=== PATIENT | male | born 1960 | race Caucasian/White ===

== ENCOUNTER 2017-02-04 13:36 | Inpatient (IN) | payer OTHER ==
[~2017-02-04] VITALS: Ht 170.2 cm; Wt 100.8 kg
[~2017-02-04 13:36] MED LIST: ALD50 PO; AMO500 PO; CLARITHROMYCIN500 M1 PO; IND20 PO; L40 PO; LAC30L PO; PRILOSEC20 MG PO
[2017-02-04 15:18] LABS: UA SPECIFIC GRAVITY >=1.030 (1.005-1.035); microscopic required? YES; urine erythrocyte 3+ (NEGATIVE)
[2017-02-04 15:21] LABS: CALCIUM 7.9 mg/dL (8.5-10.1); CARBON DIOXIDE 24.3 mmol/L (21-32); CREATININE SERUM 1.8 mg/dL (0.7-1.3); POTASSIUM SERUM 5.2 mmol/L (3.5-5.1)
[2017-02-04 15:24] LABS: PLATELET COUNT 90 x10^3mcL (130-400); RED CELL DISTRIBUTION WIDTH 16.4 % (11.5-14.5)
[2017-02-04 15:27] LABS: BILIRUBIN TOTAL 8.5 mg/dL (0.20-1.00); MAGNESIUM 1.6 mg/dL (1.8-2.4); TOTAL PROTEIN, SERUM 6.5 g/dL (6.4-8.2)
[2017-02-04 15:31] LABS: ALBUMIN 1.4 g/dL (3.4-5.0)
[2017-02-04 15:44] LABS: BAND NEUTROPHIL 24 % (0-10); BASOPHIL 0 % (0-2); METAMYELOCTE 3 % (0-2); MONOCYTE 4 % (0-7); SEGMENTED NEUTROPHILS 64 % (37-75)
[2017-02-04 15:45] LABS: PLATELET MORPHOLOGY PLATELETS DECREASED
[2017-02-04 16:51] LABS: AMPHETAMINE QUAL UR NONE DETECTED (NEG <=1000)
[2017-02-04 17:34] VITALS: BP 101/57
[2017-02-04 17:44] VITALS: Ht 170.2 cm; Wt 100.8 kg
[2017-02-04 17:50] LABS: FREE T4 1.41 ng/dL (0.76-1.46); FREE THYROXINE INDEX 1.8 ug/dL (1.4-4.5); T4(THYROXINE) 4.7 ug/dL (4.7-13.3)
[2017-02-04 18:04] LABS: T3 TOTAL 0.4 ng/mL
[2017-02-04 19:44] LABS: CHOLESTEROL/HDL RATIO 2.7
[2017-02-04 21:28] VITALS: BP 71/40
[2017-02-04 22:46] VITALS: BP 107/63
[2017-02-05] VITALS (7 sets, daily range): BP systolic 91–139; BP diastolic 53–78
[2017-02-05 07:13] LABS: BASOPHIL % 0.2 % (0-2)
[2017-02-05 07:31] LABS: CALCIUM 7.3 mg/dL (8.5-10.1); CARBON DIOXIDE 22.1 mmol/L (21-32); CREATININE SERUM 1.8 mg/dL (0.7-1.3); MAGNESIUM 1.9 mg/dL (1.8-2.4); PHOSPHOROUS 4.4 mg/dL (2.5-4.9); POTASSIUM SERUM 4.8 mmol/L (3.5-5.1)
[2017-02-05 07:48] LABS: PLATELET COUNT 56 x10^3mcL (130-400); RED CELL DISTRIBUTION WIDTH 16.4 % (11.5-14.5)
[2017-02-05 11:10] LABS: IRON 93 ug/dL (65-170)
[2017-02-05 11:13] LABS: TOTAL IRON BINDING CAPACITY 80 ug/dL (250-450)
[2017-02-05 12:06] LABS: RED BLOOD CELLS 2.67 M/mm3 (4.52-5.90)
[2017-02-06 06:26] LABS: CALCIUM 7.3 mg/dL (8.5-10.1); CARBON DIOXIDE 24.2 mmol/L (21-32); CREATININE SERUM 1.9 mg/dL (0.7-1.3); MAGNESIUM 1.9 mg/dL (1.8-2.4); PHOSPHOROUS 3.9 mg/dL (2.5-4.9); POTASSIUM SERUM 4.1 mmol/L (3.5-5.1)
[2017-02-06 06:49] LABS: BASOPHIL % 0.1 % (0-2)
[2017-02-06 06:50] LABS: RED CELL DISTRIBUTION WIDTH 16.2 % (11.5-14.5)
[2017-02-06 06:51] LABS: PLATELET COUNT 55 x10^3mcL (130-400)
[2017-02-06 07:02] VITALS: BP 108/58
[2017-02-06 10:14] VITALS: BP 123/71
[2017-02-06 14:38] VITALS: BP 126/74
[2017-02-06 17:48] VITALS: BP 121/64
[2017-02-06 20:56] LABS: SITE FLUID LEFT; SOURCE FLUID PARACENTESIS
[2017-02-06 22:36] VITALS: BP 118/69
[2017-02-07 05:47] VITALS: BP 112/65
[2017-02-07 07:06] LABS: BASOPHIL % 0 % (0-2); PLATELET COUNT 60 x10^3mcL (130-400); RED CELL DISTRIBUTION WIDTH 15.6 % (11.5-14.5)
[2017-02-07 07:18] LABS: CALCIUM 7.1 mg/dL (8.5-10.1); CREATININE SERUM 1.6 mg/dL (0.7-1.3)
[2017-02-07 10:29] VITALS: BP 112/65
[2017-02-07 15:04] VITALS: BP 134/72
[2017-02-07 16:58] LABS: APPEARANCE FLUID HAZY; COLOR FLUID YELLOW; LYMPHOCYTE FLUID 20 %; MONOCYTE FLUID 4 %; RBC FLUID 3325 /cumm; SITE FLUID LEFT; SOURCE FLUID PARACENTESIS; WBC FLUID 1325 /cumm
[2017-02-07 18:27] VITALS: BP 110/68
[2017-02-07 22:35] VITALS: BP 123/74
[2017-02-08 06:36] VITALS: BP 101/71
[2017-02-08 07:22] LABS: BILIRUBIN TOTAL 7.5 mg/dL (0.20-1.00); CALCIUM 7.7 mg/dL (8.5-10.1); CARBON DIOXIDE 22.3 mmol/L (21-32); CREATININE SERUM 1.7 mg/dL (0.7-1.3); MAGNESIUM 1.7 mg/dL (1.8-2.4); PHOSPHOROUS 4.1 mg/dL (2.5-4.9); POTASSIUM SERUM 4.1 mmol/L (3.5-5.1)
[2017-02-08 07:23] LABS: ALBUMIN 1.3 g/dL (3.4-5.0)
[2017-02-08 07:29] LABS: BASOPHIL % 0.1 % (0-2)
[2017-02-08 07:31] LABS: PLATELET COUNT 69 x10^3mcL (130-400); RED CELL DISTRIBUTION WIDTH 15.7 % (11.5-14.5)
[2017-02-08 08:56] VITALS: BP 135/71
[2017-02-08 12:46] VITALS: BP 130/72
[2017-02-08] MEDS ORDERED: MECLIZINE HCL12.5 MG PO (12:59)
[2017-02-08] MEDS ORDERED: L20 PO (12:59)
[2017-02-08] MEDS ORDERED: ALD50 PO (12:59)
[2017-02-08] MEDS ORDERED: LAC PO (13:06)
[2017-02-08] MEDS ORDERED: AUG500 PO (13:06)
[2017-02-08 13:37] VITALS: BP 130/72
== END 2017-02-08 14:47 | disposition home or self-care (01) | DRG 720 ==
LOC: ED 13:36 → DU 16:29
PROVIDERS: Emergency Medicine; Family Medicine; ADMIT Family Medicine
DX: A41.9 Sepsis, unspecified organism (principal); N17.0 Acute kidney failure with tubular necrosis; E43 Unspecified severe protein-calorie malnutrition; R65.21 Severe sepsis with septic shock; K65.2 Spontaneous bacterial peritonitis; K70.31 Alcoholic cirrhosis of liver with ascites; K72.90 Hepatic failure, unspecified without coma; N18.3 Chronic kidney disease, stage 3 (moderate); N39.0 Urinary tract infection, site not specified; E87.1 Hypo-osmolality and hyponatremia; E87.5 Hyperkalemia; D53.9 Nutritional anemia, unspecified; E86.0 Dehydration; N50.89 Other specified disorders of the male genital organs
CPT/HCPCS: 80307; 83880; 84439; G0480; J0696; J1940; J2270; J2543; J3475; J3490; J7030; P9047; Q0092

== ENCOUNTER 2017-02-17 12:32 | Observation (INO) | payer OTHER ==
[~2017-02-17] VITALS: Ht 170.2 cm; Wt 105.7 kg
[~2017-02-17 12:32] MED LIST changes: +AUG500 PO; +L20 PO; +LAC PO; +MECLIZINE HCL12.5 MG PO
--- NOTE | 2017-02-17 13:48 | NUR ---
PT AMBULATORY TO ED 4
--- NOTE | 2017-02-17 14:29 | NUR ---
PT IN ED FOR PARACENTESIS, LAST HAD 7 DAYS AGO IN THE ED, PT REPORTS GENERALIZED ABD PAIN WITH NAUSEA, ABD IS FIRM AND DISTENDED, SKIN AND EYES JAUNDICE, PT IS AWAKE AND ALERT, NO ACUTE DISTRESS, ON CUTTER INSPECTOR, AWAITING MSE
--- NOTE | 2017-02-17 15:09 | NUR ---
DR. COBIAN AT BEDSIDE TO PLACE PARACENTESIS CATHETER WITH ULTRASOUND, ERT ASSISTING, PT SIGNED CONSENT FOR THE PROCEDURE
[2017-02-17 15:20] LABS: BILIRUBIN TOTAL 10.9 mg/dL (0.20-1.00); CALCIUM 8.7 mg/dL (8.5-10.1); CARBON DIOXIDE 21.5 mmol/L (21-32); CREATININE SERUM 2.8 mg/dL (0.7-1.3); TOTAL PROTEIN, SERUM 6.7 g/dL (6.4-8.2)
[2017-02-17 15:21] LABS: ALBUMIN 1.4 g/dL (3.4-5.0)
[2017-02-17 15:24] LABS: POTASSIUM SERUM 6.8 mmol/L (3.5-5.1)
[2017-02-17 15:28] LABS: PLATELET COUNT 97 x10^3mcL (130-400); RED CELL DISTRIBUTION WIDTH 16.8 % (11.5-14.5)
[2017-02-17 16:11] LABS: BAND NEUTROPHIL 8 % (0-10); BASOPHIL 0 % (0-2); MONOCYTE 6 % (0-7); SEGMENTED NEUTROPHILS 85 % (37-75)
[2017-02-17 16:12] LABS: PLATELET MORPHOLOGY PLATELETS DECREASED; rbc morphology (normal/abnorm) ABNORMAL (NORMAL)
--- NOTE | 2017-02-17 16:15 | NUR ---
WAITING FOR BLOOD CULTURES TO INITIATE ABX
--- NOTE | 2017-02-17 16:27 | NUR ---
LAB AT BEDSIDE FOR BLOOD CULTURES
--- NOTE | 2017-02-17 17:09 | NUR ---
2 MORE ABX TO INITIATE IN THE ED PRIOR TO TRANSFER TO FLOOR, PT IN NO ACUTE DISTRESS
[2017-02-17 17:16] LABS: T3 TOTAL 0.59 ng/mL
[2017-02-17 17:18] LABS: FREE T4 1.5 ng/dL (0.76-1.46); FREE THYROXINE INDEX 1.6 ug/dL (1.4-4.5); T4(THYROXINE) 4.2 ug/dL (4.7-13.3)
--- NOTE | 2017-02-17 17:45 | NUR ---
PAGE OUT TO DR. LANTIGUA TO NOTIFY OF LACTIC ACID, DR. COBIAN OUT OF ED AND PT ADMITTED
--- NOTE | 2017-02-17 17:47 | NUR ---
SPOKE WITH DR. LANTIGUA AND NOTIFIED HIM OF ELEVATED LACTIC ACID 4.4, NOTIFIED HIM THAT PT RECEIVED 1 L NS IN THE ED
--- NOTE | 2017-02-17 17:50 | NUR ---
VIVEK RUNNING, PT IN NO ACUTE DISTRESS
--- NOTE | 2017-02-17 18:00 | NUR ---
DR. JOHN IN ED TO ASSESS PT, PT HYPOTENSIVE, , PT TO RECEIVE 2 MORE LITERS NS, 2ND LITER HUNG AT THIS TIME, LUNGS CTA, BREATHING IS EVEN AND UNLABORED
[2017-02-17 18:01] LABS: CHOLESTEROL/HDL RATIO 1.5
--- NOTE | 2017-02-17 18:17 | NUR ---
NO URINE COLLECTION IN ED, PT REPORTS MINIMAL URINE OUTPUT NORMALLY
--- NOTE | 2017-02-17 18:26 | NUR ---
REPORT TO ABRAM GERARDO TO ASSUME CARE, PT TO BE TYRANSFERRED TO ROOM 251A
--- NOTE | 2017-02-17 18:32 | NUR ---
RECEIVED PT FROM ED VIA [employer]. CAME IN DUE TO ABDOMINAL PAIN. AAOX4. DENIES HEADACHE/DIZZINESS. NO SOB NOTED, LUNG SOUNDS DIMINISHED ON THE BASES. DENIES CHEST PAIN/PRESSURE, HR AT 107, SINUS TACHYCARDIA ON THE MONITOR. C/O 8/10 ABDOMINAL PAIN. ABDOMEN IS DISTENDED AND FIRM. JAUNDICE NOTED. W/ PITTING EDEMA ON BLE. SIDE RAILS UPX2. CALL LIGHT ON REACH. PRIMARY NURSE VARSHA AT BEDSIDE
--- NOTE | 2017-02-17 18:40 | NUR ---
PT RESTING IN BED. NO ACUTE DISTRESS. C/O 8 ABD PAIN BUT TOLERABLE. REDNESS NOTED TO R SIDE ABD, MANDY. BAND AID TO LEFT SIDE ABD C/D/I. ABD DISTENDED, FIRM. PT WITH JAUNDICED SKIN. IV TO RAC WITH 2ND BAG OF IV BOLUS RUNNING PER AUDIT REVIEWER. BED IN LOWEST POSITION, CALL LIGHT WITHIN REACH. PT ORIENTED TO ROOM AND SURROUNDINGS. WILL CONTINUE TO MONITOR.
[2017-02-17 18:45] VITALS: BP 115/57
--- NOTE | 2017-02-17 19:36 | NUR ---
RECEIVED PT FROM PREVIOUS SHIFT NURSE. PT AOX4. TELE#11, ST, HR109. DENIES CP/PRESSURE. PULSES STRONG, BLE, RIGHT LEG IS 4+, LEFT LEG IS 3+. PT IS JAUNDICED. LUNG SOUNDS DIMINISHED ON RA. DENIES SOB. BOWEL SOUNDS HYPOACTIVE, ABD IS DISTENDED AND FIRM. MILD GENERALIZED WEAKNESS, PT IS AMBULATORY. R ABD REDNESS NOTED AND L ABD HAS BAND AID IN PLACE. IV IN RAC, INTACT AND PATENT. BED IN LOWEST POSITION. CALL LIGHT WITHIN REACH. WILL CONTINUE TO MONITOR.
--- NOTE | 2017-02-17 20:35 | NUR ---
LACTIC ACID 6.3. DR. GARCIA AWARE. NO FURTHER ORDERS AT THIS TIME.
--- NOTE | 2017-02-17 20:38 | NUR ---
VITALS AFTER SECOND BOLUS - BP 110/56 MAP 74, HR 108, O2 100, RR 18, T 98.4.
--- NOTE | 2017-02-17 21:30 | NUR ---
VITALS AFTER LAST BOLUS BP 106/53 MAP 68, HR 110, O2 98, T 98.5
[2017-02-17 22:19] VITALS: BP 106/53
[2017-02-17 22:48] LABS: UA SPECIFIC GRAVITY 1.025 (1.005-1.035); microscopic required? YES; urine erythrocyte 2+ (NEGATIVE)
[2017-02-17 22:51] LABS: AMPHETAMINE QUAL UR NONE DETECTED (NEG <=1000)
[2017-02-18] VITALS (7 sets, daily range): BP systolic 88–104; BP diastolic 48–63
--- NOTE | 2017-02-18 02:10 | NUR ---
PT RESTING IN BED. RR EVEN AND UNLABORED. NO ACUTE DISTRESS NOTED. IV INTACT AND PATENT. CALL LIGHT WITHIN REACH. BED IN LOWEST POSITION, CALL LIGHT WITHIN REACH. WILL CONTINUE TO MONITOR.
[2017-02-18 06:45] LABS: CALCIUM 8.1 mg/dL (8.5-10.1); CREATININE SERUM 2.8 mg/dL (0.7-1.3); MAGNESIUM 1.8 mg/dL (1.8-2.4); PHOSPHOROUS 5.8 mg/dL (2.5-4.9); POTASSIUM SERUM 5.5 mmol/L (3.5-5.1)
[2017-02-18 06:54] LABS: PLATELET COUNT 76 x10^3mcL (130-400); RED CELL DISTRIBUTION WIDTH 16.3 % (11.5-14.5)
--- NOTE | 2017-02-18 07:20 | NUR ---
RECEIVED PT IN NO ACUTE DISTRESS. RESTING COMFORTABLY IN BED. NO PAIN NOTED. ABDOMEN DISTENDED AND FIRM. IVF INFUSING. BED IN LOWEST POSITION, CALL LIGHT WITHIN REACH. WILL CONTINUE TO MONITOR.
--- NOTE | 2017-02-18 08:59 | NUR ---
SPOKE WITH DR. LANTIGUA REGARDING PT'S BP 88/48 (57), HR 72. ALSO MADE AWARE OF K+ 5.5 AND PHOS 5.8. NO NEW ORDERS AT THIS TIME. WILL CONTINUE TO MONITOR.
--- NOTE | 2017-02-18 10:45 | NUR ---
SPOKE WITH DR. LANTIGUA REGARDING PT'S BP AFTER BOLUS 91/49 (63), HR 72.
[2017-02-18 11:45] LABS: BAND NEUTROPHIL 4 % (0-10); MONOCYTE 10 % (0-7); SEGMENTED NEUTROPHILS 83 % (37-75)
[2017-02-18 11:46] LABS: PLATELET MORPHOLOGY PLATELETS DECREASED; rbc morphology (normal/abnorm) ABNORMAL (NORMAL)
--- NOTE | 2017-02-18 14:25 | NUR ---
SPOKE WITH DR. LANTIGUA REGARDING PT'S BP 88/48 (MAP 61). PT ASYMPTOMATIC AT THIS TIME. NO NEW ORDERS AT THIS TIME. WILL CONTINUE TO MONITOR.
[2017-02-18] MEDS ORDERED: LASIX40 MG PO (15:10)
[2017-02-18] MEDS ORDERED: SPIRONOLACTONE100 MG PO (15:10)
[2017-02-18] MEDS ORDERED: PROPRANOLOL HCL10 MG PO (15:11)
[2017-02-18] MEDS ORDERED: PROA PO (15:23)
[2017-02-18] MEDS ORDERED: ALD50 PO (15:24)
[2017-02-18] MEDS ORDERED: L40 PO (15:25)
[2017-02-18] MEDS ORDERED: MECLIZINE HCL12.5 MG PO (15:27)
[2017-02-18] MEDS ORDERED: FOL1 PO (15:28)
[2017-02-18 16:41] LABS: BILIRUBIN TOTAL 7.6 mg/dL (0.20-1.00); CALCIUM 7.9 mg/dL (8.5-10.1); CARBON DIOXIDE 21.6 mmol/L (21-32); CREATININE SERUM 3.3 mg/dL (0.7-1.3); POTASSIUM SERUM 5.1 mmol/L (3.5-5.1)
[2017-02-18 16:42] LABS: TOTAL PROTEIN, SERUM 5.1 g/dL (6.4-8.2)
[2017-02-18] MEDS ORDERED: LEVAQUIN750 MG PO (18:33)
[2017-02-18] MEDS ORDERED: LAC PO (18:33)
--- NOTE | 2017-02-18 19:03 | NUR ---
PT DISCHARGED TO HOME IN NO ACUTE DISTRESS. AWAKE, ALERT, AND ORIENTED. VSS. TRANSPORTED VIA WHEELCHAIR. RX GIVEN. AT BEDSIDE PROVIDING TRANSLATION. DISCHARGE INSTRUCTIONS GIVEN, PT AND VERBALIZED UNDERSTANDING. WRITTEN DISCHARGE INFORMATION ALSO PROVIDED. INSTRUCTED PT TO FOLLOW UP WITH PCP AND DR. REDDY. BELONGINGS WITH PT. IV DC'D INTACT. TELE REMOVED. [facility] AWAD ACCOMPANIED PT TO [facility].
== END 2017-02-18 19:00 | disposition home or self-care (01) | DRG 720 ==
LOC: ED 12:32 → DU 15:52
PROVIDERS: Emergency Medicine; ADMIT Family Medicine
PROC: 0W9G3ZZ Drainage of Peritoneal Cavity, Percutaneous Approach (ICD-10-PCS; principal; 2017-02-17)
DX: A41.9 Sepsis, unspecified organism (principal); N17.0 Acute kidney failure with tubular necrosis; R65.21 Severe sepsis with septic shock; E43 Unspecified severe protein-calorie malnutrition; K65.2 Spontaneous bacterial peritonitis; D69.59 Other secondary thrombocytopenia; K85.90 Acute pancreatitis without necrosis or infection, unspecified; E87.1 Hypo-osmolality and hyponatremia; K70.31 Alcoholic cirrhosis of liver with ascites; E87.5 Hyperkalemia; D53.9 Nutritional anemia, unspecified
CPT/HCPCS: 49082; 80307; 83880; 84439; G0378; J0610; J0696; J1815; J1940; J2001; J2270; J2543; J3370; J3490; J7030; J7040; J7050; J7613; J8597

== ENCOUNTER 2017-02-22 17:01 | Inpatient (IN) | payer OTHER ==
[~2017-02-22] VITALS: Ht 170.2 cm; Wt 103.0 kg
[~2017-02-22 17:01] MED LIST changes: +FOL1 PO; +LASIX40 MG PO; +LEVAQUIN750 MG PO; +PROA PO; +PROPRANOLOL HCL10 MG PO; +SPIRONOLACTONE100 MG PO
[2017-02-22 22:34] LABS: BASOPHIL % 0.2 % (0-2)
[2017-02-22 22:37] LABS: PLATELET COUNT 106 x10^3mcL (130-400); RED CELL DISTRIBUTION WIDTH 16.9 % (11.5-14.5)
[2017-02-22 22:47] LABS: BILIRUBIN TOTAL 5.9 mg/dL (0.20-1.00); CALCIUM 7.8 mg/dL (8.5-10.1); CARBON DIOXIDE 22.1 mmol/L (21-32); MAGNESIUM 2.1 mg/dL (1.8-2.4); POTASSIUM SERUM 5.1 mmol/L (3.5-5.1); TOTAL PROTEIN, SERUM 6.4 g/dL (6.4-8.2)
[2017-02-22 23:14] LABS: ALBUMIN 1.3 g/dL (3.4-5.0)
[2017-02-23] VITALS (16 sets, daily range): BP systolic 95–117; BP diastolic 49–75
[2017-02-23 02:31] LABS: FREE T4 1.13 ng/dL (0.76-1.46)
[2017-02-23 02:45] LABS: T3 TOTAL 0.56 ng/mL
[2017-02-23 02:54] LABS: T4(THYROXINE) 2.5 ug/dL (4.7-13.3)
[2017-02-23 03:05] LABS: CHOLESTEROL/HDL RATIO 1.6
[2017-02-23 05:51] LABS: BASOPHIL % 0.5 % (0-2)
[2017-02-23 06:24] LABS: CALCIUM 7.6 mg/dL (8.5-10.1); CARBON DIOXIDE 17.9 mmol/L (21-32); MAGNESIUM 2.2 mg/dL (1.8-2.4); PHOSPHOROUS 8.1 mg/dL (2.5-4.9); POTASSIUM SERUM 5.2 mmol/L (3.5-5.1)
[2017-02-23 06:33] LABS: CREATININE SERUM 5.7 mg/dL (0.7-1.3)
[2017-02-23 06:38] LABS: PLATELET COUNT 104 x10^3mcL (130-400); RED CELL DISTRIBUTION WIDTH 16.9 % (11.5-14.5)
[2017-02-23 16:19] LABS: UA SPECIFIC GRAVITY 1.025 (1.005-1.035); microscopic required? YES; urine erythrocyte 2+ (NEGATIVE)
[2017-02-23 16:27] LABS: AMPHETAMINE QUAL UR NONE DETECTED (NEG <=1000)
[2017-02-23 20:38] LABS: ALBUMIN 1.1 g/dL (3.4-5.0)
[2017-02-23 21:13] LABS: SOURCE FLUID ASCITES
[2017-02-23 21:14] LABS: APPEARANCE FLUID HAZY; COLOR FLUID YELLOW; WBC FLUID 139 /cumm
[2017-02-23 21:15] LABS: LYMPHOCYTE FLUID 40 %; RBC FLUID 576 /cumm
[2017-02-24] VITALS (14 sets, daily range): BP systolic 79–105; BP diastolic 45–64
[2017-02-24 06:25] LABS: BASOPHIL % 0.3 % (0-2)
[2017-02-24 06:47] LABS: PLATELET COUNT 97 x10^3mcL (130-400); RED CELL DISTRIBUTION WIDTH 16.8 % (11.5-14.5)
[2017-02-24 07:00] LABS: BILIRUBIN TOTAL 6.96 mg/dL (0.20-1.00); CALCIUM 7.7 mg/dL (8.5-10.1); CARBON DIOXIDE 17.7 mmol/L (21-32)
[2017-02-24 07:22] LABS: TOTAL PROTEIN, SERUM 5.8 g/dL (6.4-8.2)
[2017-02-24 07:23] LABS: CREATININE SERUM 6.4 mg/dL (0.7-1.3); PHOSPHOROUS 9.4 mg/dL (2.5-4.9); POTASSIUM SERUM 5.7 mmol/L (3.5-5.1)
[2017-02-24 22:03] LABS: CALCIUM 7.2 mg/dL (8.5-10.1); CARBON DIOXIDE 18.5 mmol/L (21-32)
[2017-02-24 22:09] LABS: ALBUMIN 1.4 g/dL (3.4-5.0)
[2017-02-24 22:10] LABS: CREATININE SERUM 6.7 mg/dL (0.7-1.3)
[2017-02-25 05:44] VITALS: Ht 170.2 cm; Wt 103.0 kg
[2017-02-25 06:10] VITALS: BP 96/55
[2017-02-25 06:34] LABS: BASOPHIL % 0.2 % (0-2)
[2017-02-25 06:51] LABS: PLATELET COUNT 69 x10^3mcL (130-400); RED CELL DISTRIBUTION WIDTH 16.9 % (11.5-14.5)
[2017-02-25 06:57] LABS: BILIRUBIN TOTAL 5.38 mg/dL (0.20-1.00); CALCIUM 7.3 mg/dL (8.5-10.1); CARBON DIOXIDE 18.4 mmol/L (21-32); POTASSIUM SERUM 4.8 mmol/L (3.5-5.1)
[2017-02-25 07:38] LABS: ALBUMIN 1.4 g/dL (3.4-5.0); CREATININE SERUM 7.1 mg/dL (0.7-1.3); TOTAL PROTEIN, SERUM 5.6 g/dL (6.4-8.2)
[2017-02-25 07:39] LABS: PHOSPHOROUS 9.9 mg/dL (2.5-4.9)
[2017-02-25 10:51] VITALS: BP 101/56
[2017-02-25 13:10] VITALS: BP 110/58
[2017-02-25 17:59] VITALS: BP 187/74
[2017-02-25 18:00] VITALS: BP 122/62
[2017-02-25] MEDS ORDERED: FLO4 PO (19:01)
[2017-02-25] MEDS ORDERED: SOD1 PO (19:02)
[2017-02-25 19:54] VITALS: BP 122/62
== END 2017-02-25 21:01 | disposition hospice, home (50) | DRG 248 ==
LOC: ED 17:01 → DU 02-23 00:37 → MU 02-23 00:37 → DU 02-23 01:20 → MU 02-24 07:07 → DU 02-24 10:06
PROVIDERS: Emergency Medicine; ADMIT Family Medicine
PROC: 0W9G3ZZ Drainage of Peritoneal Cavity, Percutaneous Approach (ICD-10-PCS; principal; 2017-02-23)
DX: K65.2 Spontaneous bacterial peritonitis (principal); N17.0 Acute kidney failure with tubular necrosis; E43 Unspecified severe protein-calorie malnutrition; I50.43 Acute on chronic combined systolic (congestive) and diastolic (congestive) heart failure; K85.90 Acute pancreatitis without necrosis or infection, unspecified; D61.818 Other pancytopenia; E87.8 Other disorders of electrolyte and fluid balance, not elsewhere classified; D69.59 Other secondary thrombocytopenia; E87.1 Hypo-osmolality and hyponatremia; F10.10 Alcohol abuse, uncomplicated; K70.31 Alcoholic cirrhosis of liver with ascites; B37.49 Other urogenital candidiasis; K72.90 Hepatic failure, unspecified without coma; N18.9 Chronic kidney disease, unspecified; E86.0 Dehydration; D53.9 Nutritional anemia, unspecified; R31.9 Hematuria, unspecified; E87.5 Hyperkalemia; J98.11 Atelectasis; K21.9 Gastro-esophageal reflux disease without esophagitis; Z68.35 Body mass index [BMI] 35.0-35.9, adult
CPT/HCPCS: 80307; 82947; 83880; 84439; 88344; 94150; C1729; J1580; J1956; J2270; J2405; J7030; P9047; Q0092